=== PATIENT | female | born 1990 | race Two or more races ===

== ENCOUNTER 2021-05-12 08:06 | Emergency (ER) | payer MEDICAID, OTHER ==
[~2021-05-12] VITALS: Ht 162.6 cm; Wt 79.4 kg
[2021-05-12] MEDS ORDERED: ASPirin 81 mg TAB PO ONE (08:30)
[2021-05-12] MEDS ORDERED: SODIUM CHLORIDE 0.9% 1,000 ML IV ONE ×2 (08:30→10:30)
[2021-05-12 08:59] LABS: Basophils # (auto) 0 10 ^3/uL (0-0.2); Basophils % (auto) 0.5 % (0.0-2.0); Eosinophils # (auto) 0.3 10 ^3/uL (0-0.8); Eosinophils % (auto) 3.3 % (0.0-7.0); Hematocrit 37.3 % (36.0-46.0); Hemoglobin 12.4 g/dL (12.2-16.2); Lymphocytes # (auto) 1.5 10 ^3/uL (0.4-5.4); Lymphocytes % (auto) 18.7 % (10.0-50.0); Mean Corpuscular Hemoglobin 27.1 pg (28.0-32.0); Mean Corpuscular Hgb Conc. 33.1 g/dL (32.0-36.0); Monocytes # (auto) 0.6 10 ^3/uL (0-1.3); Monocytes % (auto) 7.1 % (0.0-12.0); Neutrophils # (auto) 5.7 10 ^3/uL (1.6-8.6); Neutrophils % (auto) 70.4 % (37.0-80.0); Red Blood Cells 4.55 10^6/uL (4.0-5.20); Red Cell Distribution Width 14.5 % (11.8-14.3); White Blood Cell 8.1 10^3/uL (4.4-10.8)
[2021-05-12 09:18] LABS: Chloride 108 mmol/L (98-107); Potassium 4.3 mmol/L (3.5-5.1); Sodium 138 mmol/L (136-145)
[2021-05-12 09:28] LABS: Alanine Aminotransferase 16 U/L (13-56); Albumin 3.8 g/dL (3.4-5.0); Alkaline Phosphatase 46 U/L (45-117); Anion Gap 4 (5-15); Aspartate Aminotransferase 10 U/L (15-37); BUN/Creatinine Ratio 17.1; Beta HCG, Quantitative < 1 mlU/mL (1-3); Bilirubin, Total 0.2 mg/dL (0.2-1.0); Blood Urea Nitrogen 13 mg/dL (7-18); Calcium 8.7 mg/dL (8.5-10.1); Carbon Dioxide 26 mmol/L (21-32); GFR African American 113 mL/min; GFR Non-African American 94 mL/min; Glucose 90 mg/dL (74-106); Total Protein 7.7 g/dL (6.4-8.2)
[2021-05-12 09:57] LABS: Urine Bacteria FEW /hpf (None Seen); Urine Blood TRACE /uL (Negative); Urine Mucus FEW (None Seen); Urine Specific Gravity 1.027 (1.001-1.035); Urine WBC 1 /hpf (0 - 5)
[2021-05-12] MEDS ORDERED: MORPHINE SULFATE 4 MG/ML SYR/VIAL IV ONE (10:30)
[2021-05-12] MEDS ORDERED: CIPROFLOXACIN HCL 500 MG TAB PO ONE ×2 (10:30→10:45)
[2021-05-12] MEDS ORDERED: ONDANSETRON HCL 4 MG/2 ML VIAL IV ONE (10:30)
[2021-05-12 12:39] VITALS: BP 105/68
== END 2021-05-12 12:41 | disposition home or self-care (01) ==
LOC: ER 08:06
DX: R07.89 Other chest pain (principal); N39.0 Urinary tract infection, site not specified; D25.9 Leiomyoma of uterus, unspecified; Z90.49 Acquired absence of other specified parts of digestive tract; Z88.8 Allergy status to other drugs, medicaments and biological substances
CPT/HCPCS: 36415; 71046; 76830; 76856; 80053; 81001; 83735; 84443; 84484; 84702; 85025; 85379; 93005; 96361; 96374; 96375; 99285; J2270; J2405; J7030

== ENCOUNTER 2021-07-26 07:53 | Emergency (ER) | payer MEDICAID ==
[~2021-07-26] VITALS: Ht 162.6 cm; Wt 90.7 kg
[2021-07-26 07:57] VITALS: BP 144/91
== END 2021-07-26 09:26 | disposition left against medical advice (07) ==
LOC: ER 07:53
DX: R10.30 Lower abdominal pain, unspecified (principal); R11.2 Nausea with vomiting, unspecified; R19.7 Diarrhea, unspecified; Z53.21 Procedure and treatment not carried out due to patient leaving prior to being seen by health care provider

== ENCOUNTER 2021-08-13 15:32 | Emergency (ER) | payer MEDICAID ==
[~2021-08-13] VITALS: Ht 162.6 cm; Wt 90.7 kg
[2021-08-13] MEDS ORDERED: ASPirin 81 mg TAB PO ONE (16:15)
[2021-08-13] MEDS ORDERED: SODIUM CHLORIDE 0.9% 1,000 ML IVB ONE (16:15)
[2021-08-13 16:44] LABS: Basophils # (auto) 0.1 10 ^3/uL (0-0.2); Basophils % (auto) 0.8 % (0.0-2.0); Eosinophils # (auto) 0.2 10 ^3/uL (0-0.8); Eosinophils % (auto) 3.2 % (0.0-7.0); Hemoglobin 12.3 g/dL (12.2-16.2); Lymphocytes # (auto) 1.7 10 ^3/uL (0.4-5.4); Lymphocytes % (auto) 22.2 % (10.0-50.0); Mean Corpuscular Hemoglobin 27.2 pg (28.0-32.0); Mean Corpuscular Hgb Conc. 33.2 g/dL (32.0-36.0); Mean Corpuscular Volume 81.9 fL (80.0-100.0); Monocytes # (auto) 0.9 10 ^3/uL (0-1.3); Monocytes % (auto) 11.5 % (0.0-12.0); Neutrophils # (auto) 4.6 10 ^3/uL (1.6-8.6); Neutrophils % (auto) 62.3 % (37.0-80.0); Red Blood Cells 4.52 10^6/uL (4.0-5.20); Red Cell Distribution Width 14.3 % (11.8-14.3); White Blood Cell 7.5 10^3/uL (4.4-10.8)
[2021-08-13 16:59] LABS: Albumin 3.8 g/dL (3.4-5.0); Calcium 8.4 mg/dL (8.5-10.1); Magnesium 3.2 mg/dL (1.6-2.6); Potassium 3.9 mmol/L (3.5-5.1)
[2021-08-13] MEDS ORDERED: ONDANSETRON HCL 4 MG/2 ML VIAL IV ONE (19:00)
[2021-08-13] MEDS ORDERED: HYDROmorphone HCL 2 MG/ML VL IV ONE (19:00)
[2021-08-13 20:23] VITALS: BP 125/69
[2021-08-13 20:53] LABS: BUN/Creatinine Ratio 9.3
[2021-08-13 20:55] LABS: Bilirubin, Total 0.1 mg/dL (0.2-1.0); Total Protein 7.9 g/dL (6.4-8.2)
== END 2021-08-13 21:29 | disposition home or self-care (01) ==
LOC: ER 15:32
DX: D25.9 Leiomyoma of uterus, unspecified (principal); R00.2 Palpitations; Z90.49 Acquired absence of other specified parts of digestive tract; Z88.8 Allergy status to other drugs, medicaments and biological substances; Z20.822 Contact with and (suspected) exposure to COVID-19
CPT/HCPCS: 36415; 71046; 76856; 80053; 83735; 84484; 84702; 85025; 87426; 93005; 96361; 96374; 96375; 99285; J1170; J2405; J7030

== ENCOUNTER 2021-10-30 15:45 | Emergency (ER) | payer MEDICAID ==
[~2021-10-30] VITALS: Ht 162.6 cm; Wt 95.3 kg
[2021-10-30] MEDS ORDERED: ONDANSETRON HCL 4 MG/2 ML VIAL IV ONE (16:15)
[2021-10-30] MEDS ORDERED: SODIUM CHLORIDE 0.9% 1,000 ML IV ONE ×2 (16:15→16:30)
[2021-10-30] MEDS ORDERED: MORPHINE SULFATE 4 MG/ML SYR/VIAL IV ONE (16:15)
[2021-10-30] MEDS ORDERED: SODIUM CHLORIDE 0.9% 500 ML IVB ONE ×2 (16:15→16:30)
[2021-10-30] MEDS ORDERED: MORPHINE SULFATE INJECTION 2 MG/ML SYRG IV ONE (16:30)
[2021-10-30 18:04] LABS: Albumin 3.8 g/dL (3.4-5.0); Basophils # (auto) 0.1 10 ^3/uL (0-0.2); Basophils % (auto) 0.7 % (0.0-2.0); Calcium 8.5 mg/dL (8.5-10.1); Eosinophils # (auto) 0.3 10 ^3/uL (0-0.8); Eosinophils % (auto) 2.9 % (0.0-7.0); Hematocrit 36.8 % (36.0-46.0); Hemoglobin 12.3 g/dL (12.2-16.2); Lymphocytes # (auto) 2.1 10 ^3/uL (0.4-5.4); Lymphocytes % (auto) 23.6 % (10.0-50.0); Magnesium 2.4 mg/dL (1.6-2.6); Mean Corpuscular Hemoglobin 27.3 pg (28.0-32.0); Mean Corpuscular Hgb Conc. 33.5 g/dL (32.0-36.0); Mean Corpuscular Volume 81.4 fL (80.0-100.0); Monocytes # (auto) 0.6 10 ^3/uL (0-1.3); Monocytes % (auto) 6.7 % (0.0-12.0); Neutrophils % (auto) 66.1 % (37.0-80.0); Nucleated Red Blood Cells % 0.1 %; Red Blood Cells 4.52 10^6/uL (4.0-5.20); Red Cell Distribution Width 14.4 % (11.8-14.3)
[2021-10-30 18:06] LABS: BUN/Creatinine Ratio 12.7
[2021-10-30 18:09] LABS: Bilirubin, Total 0.1 mg/dL (0.2-1.0); Total Protein 8.2 g/dL (6.4-8.2)
[2021-10-30 18:36] VITALS: BP 137/77
[2021-10-30] MEDS ORDERED: IOHEXOL 300 MG/ML 100ML BOTTLE IJ ONE (20:02)
== END 2021-10-30 22:12 | disposition left against medical advice (07) ==
LOC: ER 15:45
DX: R10.32 Left lower quadrant pain (principal); R11.2 Nausea with vomiting, unspecified; Z90.49 Acquired absence of other specified parts of digestive tract; Z88.6 Allergy status to analgesic agent
CPT/HCPCS: 36415; 74177; 76830; 76856; 80053; 83690; 83735; 84702; 85025; 96361; 96374; 96375; 99285; J2270; J2405; J7040; Q9967

== ENCOUNTER 2021-12-07 08:36 | Emergency (ER) | payer MEDICAID ==
[~2021-12-07] VITALS: Ht 162.6 cm; Wt 95.3 kg
[2021-12-07 08:37] VITALS: BP 139/85
== END 2021-12-07 11:30 | disposition left against medical advice (07) ==
LOC: ER 08:36
DX: N63.0 Unspecified lump in unspecified breast (principal); R50.9 Fever, unspecified; Z53.21 Procedure and treatment not carried out due to patient leaving prior to being seen by health care provider

== ENCOUNTER 2022-01-19 14:28 | Emergency (ER) | payer MEDICAID, OTHER ==
[~2022-01-19] VITALS: Ht 165.1 cm; Wt 95.3 kg
[2022-01-19 15:18] LABS: Basophils # (auto) 0 10 ^3/uL (0-0.2); Basophils % (auto) 0.5 % (0.0-2.0); Eosinophils # (auto) 0.2 10 ^3/uL (0-0.8); Eosinophils % (auto) 1.7 % (0.0-7.0); Hematocrit 39.7 % (36.0-46.0); Hemoglobin 13.4 g/dL (12.2-16.2); Lymphocytes # (auto) 1.8 10 ^3/uL (0.4-5.4); Lymphocytes % (auto) 19.8 % (10.0-50.0); Mean Corpuscular Hemoglobin 27.2 pg (28.0-32.0); Mean Corpuscular Hgb Conc. 33.7 g/dL (32.0-36.0); Mean Corpuscular Volume 80.9 fL (80.0-100.0); Monocytes # (auto) 0.6 10 ^3/uL (0-1.3); Monocytes % (auto) 6.1 % (0.0-12.0); Neutrophils # (auto) 6.6 10 ^3/uL (1.6-8.6); Neutrophils % (auto) 71.9 % (37.0-80.0); Red Blood Cells 4.91 10^6/uL (4.0-5.20); Red Cell Distribution Width 15.1 % (11.8-14.3); White Blood Cell 9.2 10^3/uL (4.4-10.8)
[2022-01-19 15:29] LABS: Albumin 4.1 g/dL (3.4-5.0); BUN/Creatinine Ratio 14.1; Potassium 3.8 mmol/L (3.5-5.1)
[2022-01-19 15:32] LABS: Bilirubin, Total 0.4 mg/dL (0.2-1.0); Total Protein 8.4 g/dL (6.4-8.2)
[2022-01-19] MEDS ORDERED: ACETAMINOPHEN 325 MG TAB PO ONE (16:15)
[2022-01-19] MEDS ORDERED: ONDANSETRON ODT 4 MG TAB PO ONE (16:15)
[2022-01-19] MEDS ORDERED: MORPHINE SULFATE INJ 2 MG/ml SYRG IM ONE (16:30)
[2022-01-19] MEDS ORDERED: SODIUM CHLORIDE 0.9% 1,000 ML IV ONE (17:00)
[2022-01-19] MEDS ORDERED: ONDANSETRON HCL 4 MG/2 ML VIAL IM ONE (17:00)
[2022-01-19] MEDS ORDERED: SULF800T7 PO (17:21)
[2022-01-19] MEDS ORDERED: MORPHINE SULFATE INJ 2 MG/ml SYRG IV ONE (18:30)
[2022-01-19 19:09] VITALS: BP 127/95
== END 2022-01-19 20:10 | disposition home or self-care (01) ==
LOC: ER 14:28
DX: N39.0 Urinary tract infection, site not specified (principal)
CPT/HCPCS: 36415; 76856; 80053; 84702; 85025; 96361; 96372; 96374; 99285; J2270; J2405; J7030; Q0162

== ENCOUNTER 2022-02-26 09:33 | Emergency (ER) | payer OTHER ==
[~2022-02-26 09:33] MED LIST: SULF800T7 PO
[2022-02-26 09:53] VITALS: BP 111/69
[2022-02-26 10:42] LABS: Basophils # (auto) 0.1 10 ^3/uL (0-0.2); Eosinophils # (auto) 0.2 10 ^3/uL (0-0.8); Hemoglobin 11.9 g/dL (12.2-16.2); Monocytes # (auto) 0.4 10 ^3/uL (0-1.3)
[2022-02-26 10:43] LABS: Eosinophils % (auto) 3.1 % (0.0-7.0); Hematocrit 37.2 % (36.0-46.0); Lymphocytes # (auto) 1.4 10 ^3/uL (0.4-5.4); Lymphocytes % (auto) 24.4 % (10.0-50.0); Mean Corpuscular Hemoglobin 25.9 pg (28.0-32.0); Mean Corpuscular Volume 80.9 fL (80.0-100.0); Monocytes % (auto) 6.7 % (0.0-12.0); Neutrophils # (auto) 3.9 10 ^3/uL (1.6-8.6); Neutrophils % (auto) 64.8 % (37.0-80.0); Nucleated Red Blood Cells % 0.1 %; Red Cell Distribution Width 14.7 % (11.8-14.3); White Blood Cell 5.9 10^3/uL (4.4-10.8)
[2022-02-26 11:00] LABS: Albumin 3.5 g/dL (3.4-5.0); Calcium 8.6 mg/dL (8.5-10.1); Potassium 3.9 mmol/L (3.5-5.1)
[2022-02-26 11:03] LABS: BUN/Creatinine Ratio 12.7; Bilirubin, Total 0.2 mg/dL (0.2-1.0); Total Protein 7.8 g/dL (6.4-8.2)
== END 2022-02-26 14:30 | disposition left against medical advice (07) ==
LOC: ER 09:33
DX: N83.201 Unspecified ovarian cyst, right side (principal)
CPT/HCPCS: 36415; 80053; 84702; 85025

== ENCOUNTER → 2022-06-10 | Emergency (ER) | payer MEDICAID, OTHER ==
[~2022-06-10] VITALS: Ht 162.6 cm; Wt 94.1 kg
[~2022-06-10] MED LIST changes: +HYDR-4902 PO; +HYDROcodone-ACET 10/325MG TAB PO ONE; +MORPHINE SULFATE INJ 2 MG/ml SYRG IM ONE; +MORPHINE SULFATE INJ 2 MG/ml SYRG IV ONE; +ONDANSETRON HCL 4 MG/2 ML VIAL IV ONE; +SODIUM CHLORIDE 0.9% 1,000 ML IV ONE; +cefTRIAXone 1GM/50ML D5W 50 ML IV ONE
[2022-06-10 13:40] LABS: Hemoglobin 11.4 g/dL (12.2-16.2); Lymphocytes # (auto) 2.1 10 ^3/uL (0.4-5.4); Red Cell Distribution Width 15.2 % (11.8-14.3)
[2022-06-10 13:42] LABS: Basophils # (auto) 0 10 ^3/uL (0-0.2); Basophils % (auto) 0.4 % (0.0-2.0); Eosinophils # (auto) 0.3 10 ^3/uL (0-0.8); Eosinophils % (auto) 3.5 % (0.0-7.0); Hematocrit 34.9 % (36.0-46.0); Lymphocytes % (auto) 27.5 % (10.0-50.0); Mean Corpuscular Hemoglobin 26.8 pg (28.0-32.0); Mean Corpuscular Hgb Conc. 32.7 g/dL (32.0-36.0); Mean Corpuscular Volume 82.1 fL (80.0-100.0); Monocytes # (auto) 0.7 10 ^3/uL (0-1.3); Monocytes % (auto) 8.7 % (0.0-12.0); Neutrophils # (auto) 4.6 10 ^3/uL (1.6-8.6); Neutrophils % (auto) 59.9 % (37.0-80.0); Nucleated Red Blood Cells % 0.1 %; Red Blood Cells 4.25 10^6/uL (4.0-5.20); White Blood Cell 7.6 10^3/uL (4.4-10.8)
[2022-06-10 13:55] LABS: Albumin 3.7 g/dL (3.4-5.0); Calcium 8.7 mg/dL (8.5-10.1); Potassium 4.3 mmol/L (3.5-5.1)
[2022-06-10 13:58] LABS: BUN/Creatinine Ratio 13.9; Bilirubin, Total 0.2 mg/dL (0.2-1.0); Total Protein 7.2 g/dL (6.4-8.2)
[2022-06-10 18:50] VITALS: BP 111/53
== END | disposition home or self-care (01) ==
LOC: ER 08:58
DX: N83.209 Unspecified ovarian cyst, unspecified side (principal); E03.9 Hypothyroidism, unspecified; Z90.49 Acquired absence of other specified parts of digestive tract; Z79.899 Other long term (current) drug therapy; Z88.8 Allergy status to other drugs, medicaments and biological substances
CPT/HCPCS: 36415; 74176; 80053; 85025; 96365; 96375; 99284; J0696; J2270; J2405; J7030

== ENCOUNTER 2022-06-14 09:06 | Inpatient (IN) | payer MEDICAID ==
[~2022-06-14] VITALS: Ht 162.6 cm; Wt 105.3 kg
[~2022-06-14 09:06] MED LIST changes: -HYDROcodone-ACET 10/325MG TAB PO ONE; -MORPHINE SULFATE INJ 2 MG/ml SYRG IM ONE; -MORPHINE SULFATE INJ 2 MG/ml SYRG IV ONE; -ONDANSETRON HCL 4 MG/2 ML VIAL IV ONE; -SODIUM CHLORIDE 0.9% 1,000 ML IV ONE; -cefTRIAXone 1GM/50ML D5W 50 ML IV ONE
[2022-06-14] MEDS ORDERED: SODIUM CHLORIDE 0.9% 1,000 ML IV ONE (09:30)
[2022-06-14 13:31] LABS: Hematocrit 36.5 % (36.0-46.0); Hemoglobin 11.9 g/dL (12.2-16.2); Mean Corpuscular Hemoglobin 26.5 pg (28.0-32.0); Mean Corpuscular Hgb Conc. 32.5 g/dL (32.0-36.0); Mean Corpuscular Volume 81.5 fL (80.0-100.0); Red Blood Cells 4.48 10^6/uL (4.0-5.20); White Blood Cell 8.1 10^3/uL (4.4-10.8)
[2022-06-14 13:44] LABS: Band Neutrophils % (manual) 0; Blast Cells 0; Eosinophils % (manual) 0 (0-7); Metamyelocytes % 0; Myelocytes % 0; Promyelocytes % 0; Reactive Lymphocytes 0
[2022-06-14] MEDS ORDERED: ONDANSETRON HCL 4 MG/2 ML VIAL IV ONE (13:45)
[2022-06-14] MEDS ORDERED: MORPHINE SULFATE INJ 2 MG/ml SYRG IV ONE (13:45)
[2022-06-14 13:52] LABS: Albumin 3.9 g/dL (3.4-5.0); Potassium 3.8 mmol/L (3.5-5.1)
[2022-06-14 13:55] LABS: Bilirubin, Total 0.2 mg/dL (0.2-1.0); Total Protein 8.1 g/dL (6.4-8.2)
[2022-06-14] MEDS ORDERED: ACETAMINOPHEN 325 MG TAB PO PRN (14:00)
[2022-06-14] MEDS ORDERED: cefTRIAXone 1GM/50ML D5W 50 ML IV ONE (14:15)
[2022-06-14] MEDS ORDERED: metroNIDAZOLE 500MG/100ML 100 ML IV ONE (14:15)
[2022-06-14] MEDS: SODIUM CHLORIDE 0.9% 1,000 ML IV SCH (14:27)
[2022-06-14 14:51] LABS: Cholesterol 188 mg/dL (< 200); HDL Cholesterol 47 mg/dL (40-59); LDL Cholesterol 128 mg/dL (< 100); Triglycerides 185 mg/dL (< 150)
[2022-06-14 15:33] LABS: Basophils % (manual) 3 (0.0-2.0); Lymphocytes % (manual) 23 (10.0-50.0); Monocytes % (manual) 8 (0-12)
[2022-06-14 16:34] LABS: Amphetamine Screen, Urine NEGATIVE (NEGATIVE); Barbiturate Scree,Urine NEGATIVE (NEGATIVE); Benzodiazephine Screen, Urine NEGATIVE (NEGATIVE); Cannabinoid Screen, Urine NEGATIVE (NEGATIVE); Cocaine Screen, Urine NEGATIVE (NEGATIVE); Opiate Scree,Urine POSITIVE (NEGATIVE); Phencyclidine Screen, Urine NEGATIVE (NEGATIVE); Urine Bacteria MOD /hpf (None Seen); Urine Blood Negative /uL (Negative); Urine Mucus FEW (None Seen); Urine Specific Gravity 1.032 (1.001-1.035); Urine WBC 16 /hpf (0 - 5)
[2022-06-14] MEDS: ONDANSETRON HCL 4 MG/2 ML VIAL IV PRN (18:09)
[2022-06-14] MEDS: MORPHINE SULFATE INJ 2 MG/ml SYRG IV PRN ×2 (18:09→23:15)
[2022-06-14 23:00] VITALS: BP 121/41
[2022-06-14] MEDS: metroNIDAZOLE 500MG/100ML 100 ML IV SCH (23:14)
[2022-06-15 05:00] VITALS: BP 94/50
[2022-06-15] MEDS: metroNIDAZOLE 500MG/100ML 100 ML IV SCH ×3 (05:57→22:16)
[2022-06-15] MEDS: SODIUM CHLORIDE 0.9% 1,000 ML IV SCH ×3 (05:58→14:15)
[2022-06-15 09:00] VITALS: BP 128/67
[2022-06-15] MEDS: MORPHINE SULFATE INJ 2 MG/ml SYRG IV PRN ×4 (09:04→22:17)
[2022-06-15 09:16] LABS: Basophils # (auto) 0.1 10 ^3/uL (0-0.2); Basophils % (auto) 1.1 % (0.0-2.0); Eosinophils # (auto) 0.2 10 ^3/uL (0-0.8); Eosinophils % (auto) 3.3 % (0.0-7.0); Hematocrit 32.8 % (36.0-46.0); Hemoglobin 10.8 g/dL (12.2-16.2); Lymphocytes # (auto) 1.6 10 ^3/uL (0.4-5.4); Lymphocytes % (auto) 25.6 % (10.0-50.0); Mean Corpuscular Hemoglobin 26.8 pg (28.0-32.0); Mean Corpuscular Volume 81.1 fL (80.0-100.0); Monocytes # (auto) 0.6 10 ^3/uL (0-1.3); Monocytes % (auto) 9.7 % (0.0-12.0); Neutrophils # (auto) 3.8 10 ^3/uL (1.6-8.6); Neutrophils % (auto) 60.3 % (37.0-80.0); Red Blood Cells 4.04 10^6/uL (4.0-5.20); Red Cell Distribution Width 14.4 % (11.8-14.3); White Blood Cell 6.4 10^3/uL (4.4-10.8)
[2022-06-15 09:27] LABS: BUN/Creatinine Ratio 18.3; Potassium 4.1 mmol/L (3.5-5.1)
[2022-06-15 13:00] VITALS: BP 112/75
[2022-06-15] MEDS ORDERED: OMNIPAQUE ORAL SOLN 500ml 12mg/ml PO ONE (14:53)
[2022-06-15] MEDS ORDERED: IOHEXOL 300 MG/ML 100ML BOTTLE IJ ONE (16:07)
[2022-06-15 16:45] VITALS: BP 107/66
[2022-06-15] MEDS ORDERED: cefTRIAXone 1GM/50ML D5W 50 ML IV ONE (17:00)
[2022-06-15] MEDS: cefTRIAXone 1GM/50ML D5W 50 ML IV SCH (18:17)
[2022-06-15] MEDS: ONDANSETRON HCL 4 MG/2 ML VIAL IV PRN (18:18)
[2022-06-15 20:00] VITALS: BP 116/73
[2022-06-15 22:00] VITALS: BP 116/73
[2022-06-16] VITALS (7 sets, daily range): BP systolic 90–134; BP diastolic 55–92
[2022-06-16] MEDS: SODIUM CHLORIDE 0.9% 1,000 ML IV SCH ×4 (00:18→21:00)
[2022-06-16] MEDS: metroNIDAZOLE 500MG/100ML 100 ML IV SCH ×3 (06:05→21:36)
[2022-06-16] MEDS: MORPHINE SULFATE INJ 2 MG/ml SYRG IV PRN ×5 (06:57→23:23)
[2022-06-16] MEDS: ONDANSETRON HCL 4 MG/2 ML VIAL IV PRN (15:58)
[2022-06-16] MEDS: cefTRIAXone 1GM/50ML D5W 50 ML IV SCH (17:07)
[2022-06-16] MEDS: HYDROcodone-ACET 5/325MG TAB PO PRN (21:36)
[2022-06-17] VITALS (7 sets, daily range): BP systolic 102–137; BP diastolic 46–93
[2022-06-17] MEDS ORDERED: HYDROmorphone HCL 2 MG/ML VL/or syr IV PRN (01:45)
[2022-06-17] MEDS: ONDANSETRON HCL 4 MG/2 ML VIAL IV PRN ×5 (01:54→23:09)
[2022-06-17] MEDS: SODIUM CHLORIDE 0.9% 1,000 ML IV SCH ×3 (05:57→22:15)
[2022-06-17] MEDS: HYDROmorphone HCL 2 MG/ML VL/or syr IV PRN ×5 (05:58→23:12)
[2022-06-17] MEDS: metroNIDAZOLE 500MG/100ML 100 ML IV SCH ×3 (05:59→22:03)
[2022-06-17] MEDS: PANTOPRAZOLE 40 MG/10 ML VIAL INJ IV SCH (10:06)
[2022-06-17] MEDS: HYDROcodone-ACET 5/325MG TAB PO PRN (11:42)
[2022-06-17] MEDS: cefTRIAXone 1GM/50ML D5W 50 ML IV SCH (17:47)
[2022-06-18] MEDS: SODIUM CHLORIDE 0.9% 1,000 ML IV SCH ×2 (02:08→14:15)
[2022-06-18] MEDS: ONDANSETRON HCL 4 MG/2 ML VIAL IV PRN ×3 (03:51→11:51)
[2022-06-18] MEDS: HYDROmorphone HCL 2 MG/ML VL/or syr IV PRN ×3 (04:02→11:51)
[2022-06-18] MEDS: metroNIDAZOLE 500MG/100ML 100 ML IV SCH ×2 (07:44→13:20)
[2022-06-18] MEDS: PANTOPRAZOLE 40 MG/10 ML VIAL INJ IV SCH (09:32)
[2022-06-18] MEDS: HYDROcodone-ACET 5/325MG TAB PO PRN ×2 (09:33→13:21)
[2022-06-18] MEDS ORDERED: AMOX500T86 PO (12:05)
[2022-06-18] MEDS ORDERED: ONDA-144 PO (12:05)
[2022-06-18 12:38] VITALS: BP 99/53
[2022-06-18 13:00] VITALS: BP 99/53
== END 2022-06-18 15:30 | disposition home or self-care (01) | DRG 251 ==
LOC: ER 09:06 → OVERFLOW 13:50 → WEST WING 22:55
PROVIDERS: ADMIT Registered Nurse; ATTEND Internal Medicine
DX: R10.30 Lower abdominal pain, unspecified (principal); E66.01 Morbid (severe) obesity due to excess calories; R11.2 Nausea with vomiting, unspecified; Z20.822 Contact with and (suspected) exposure to COVID-19; Z88.8 Allergy status to other drugs, medicaments and biological substances; Z90.49 Acquired absence of other specified parts of digestive tract; Z68.39 Body mass index [BMI] 39.0-39.9, adult
CPT/HCPCS: 36415; 74178; 80048; 80053; 80061; 80307; 81001; 81025; 83036; 84443; 85007; 85025; 85027; 87040; 87086; 87426; 96361; 96365; 96366; 96367; 96375; 96376; C9113; G0378; J0696; J2405; J3490

== ENCOUNTER 2023-12-21 12:04 | Inpatient (IN) | payer MEDICAID ==
[~2023-12-21] VITALS: Ht 162.6 cm; Wt 95.9 kg
[~2023-12-21 12:04] MED LIST changes: +AMOX500T86 PO; +CEFD300C2 PO; +CYCL-839 PO; +GABA-1250 PO; -HYDR-4902 PO; +ONDA-144 PO; +PRED20TA2 PO; -SULF800T7 PO
[2023-12-21] MEDS: MORPHINE SULFATE INJ 2 MG/ml SYRG IM ONE (15:23)
[2023-12-21] MEDS: SODIUM CHLORIDE 0.9% 1,000 ML IV ONE ×2 (15:23)
[2023-12-21] MEDS: HYDROcodone-ACET 10/325MG TAB PO ONE (15:23)
[2023-12-21 15:37] LABS: Basophils # (auto) 0 10 ^3/uL (0-0.2); Basophils % (auto) 0.4 % (0.0-2.0); Eosinophils # (auto) 0.2 10 ^3/uL (0-0.8); Eosinophils % (auto) 3.1 % (0.0-7.0); Hematocrit 35.5 % (36.0-46.0); Hemoglobin 11.5 g/dL (12.2-16.2); Lymphocytes # (auto) 1.9 10 ^3/uL (0.4-5.4); Lymphocytes % (auto) 24.3 % (10.0-50.0); Mean Corpuscular Hemoglobin 26.7 pg (28.0-32.0); Mean Corpuscular Hgb Conc. 32.5 g/dL (32.0-36.0); Mean Corpuscular Volume 81.9 fL (80.0-100.0); Monocytes # (auto) 0.6 10 ^3/uL (0-1.3); Monocytes % (auto) 7.1 % (0.0-12.0); Neutrophils # (auto) 5.1 10 ^3/uL (1.6-8.6); Neutrophils % (auto) 65.1 % (37.0-80.0); Nucleated Red Blood Cells % 0.1 %; Red Blood Cells 4.33 10^6/uL (4.0-5.20); Red Cell Distribution Width 16.1 % (11.8-14.3); White Blood Cell 7.9 10^3/uL (4.4-10.8)
[2023-12-21 15:50] LABS: Chloride 107 mmol/L (98-107); Potassium 3.4 mmol/L (3.5-5.1); Sodium 140 mmol/L (136-145)
[2023-12-21 15:51] LABS: Anion Gap 7 (5-15); Carbon Dioxide 26 mmol/L (20-30)
[2023-12-21 15:52] LABS: Calcium 9.4 mg/dL (8.5-10.1)
[2023-12-21 15:56] LABS: BUN/Creatinine Ratio 11.5 (10.0-20.0); Blood Urea Nitrogen 9 mg/dL (9-23); Glucose 90 mg/dL (74-106)
[2023-12-21] MEDS: ONDANSETRON ODT 4 MG TAB PO ONE (16:22)
[2023-12-21 17:22] VITALS: PULSE 84; RESP 16; O2SAT 99
[2023-12-21] MEDS ORDERED: DOCUSATE SOD 100 MG CAP PO PRN (17:45)
[2023-12-21] MEDS ORDERED: HYDROmorphone HCL 2 MG/ML VL/or syr IV PRN (17:45)
[2023-12-21] MEDS ORDERED: ONDANSETRON HCL 4 MG/2 ML VIAL IV PRN (17:45)
[2023-12-21] MEDS: MORPHINE SULFATE 4 MG/ML SYR/VIAL IV ONE (18:01)
[2023-12-21] MEDS: POTASSIUM EFFERVESENT TAB 25 MEQ PO ONE (18:22)
[2023-12-21] MEDS: SODIUM CHLORIDE 0.9% 1,000 ML IV SCH (18:22)
[2023-12-21] MEDS: DexAMETHasone SOD PHOS 10MG/1ML VIAL INJ IV ONE (18:22)
[2023-12-21 20:00] VITALS: PULSE 91; RESP 20; TEMP 97.8; O2SAT 97
[2023-12-21] MEDS: diphenhdrAMINE HCL 50 MG/1 ML VL IV PRN (20:25)
[2023-12-21] MEDS: HYDROmorphone HCL 2 MG/ML VL/or syr IV ONE (20:26)
[2023-12-21 22:00] VITALS: BP 108/76; PULSE 93; RESP 16; O2SAT 97
[2023-12-21] MEDS ORDERED: CYCLOBENZAPRINE HCL 10 MG TAB PO SCH (22:00)
[2023-12-21] MEDS ORDERED: GABAPENTIN 300 MG CAP PO SCH (22:00)
[2023-12-22] MEDS ORDERED: DexAMETHasone SOD PHOS 10MG/1ML VIAL INJ IV SCH (10:00)
== END 2023-12-21 22:21 | disposition left against medical advice (07) | DRG 347 ==
LOC: ER 12:04 → OVERFLOW 17:35
PROVIDERS: ADMIT Nurse Practitioner Family; ATTEND Nurse Practitioner Family
DX: M51.16 Intervertebral disc disorders with radiculopathy, lumbar region (principal); D64.9 Anemia, unspecified; E03.9 Hypothyroidism, unspecified; I10 Essential (primary) hypertension; Z53.29 Procedure and treatment not carried out because of patient's decision for other reasons; K80.20 Calculus of gallbladder without cholecystitis without obstruction; E87.6 Hypokalemia; Z79.899 Other long term (current) drug therapy; Z88.8 Allergy status to other drugs, medicaments and biological substances; Z90.49 Acquired absence of other specified parts of digestive tract
CPT/HCPCS: 36415; 80048; 85025; G0378; J1100; Q0162

== ENCOUNTER 2024-04-03 13:19 | Emergency (ER) | payer MEDICAID ==
[~2024-04-03] VITALS: Ht 162.6 cm; Wt 104.3 kg
[2024-04-03 13:36] VITALS: BP 132/91; PULSE 105; RESP 16; O2SAT 99
[2024-04-03 13:57] LABS: Basophils # (auto) 0 10 ^3/uL (0-0.2); Basophils % (auto) 0.4 % (0.0-2.0); Eosinophils # (auto) 0.3 10 ^3/uL (0-0.8); Eosinophils % (auto) 2.6 % (0.0-7.0); Hematocrit 31.5 % (36.0-46.0); Hemoglobin 10.5 g/dL (12.2-16.2); Lymphocytes # (auto) 2.1 10 ^3/uL (0.4-5.4); Lymphocytes % (auto) 21.4 % (10.0-50.0); Mean Corpuscular Hemoglobin 25.5 pg (28.0-32.0); Mean Corpuscular Hgb Conc. 33.3 g/dL (32.0-36.0); Mean Corpuscular Volume 76.6 fL (80.0-100.0); Monocytes # (auto) 0.7 10 ^3/uL (0-1.3); Monocytes % (auto) 7.4 % (0.0-12.0); Neutrophils # (auto) 6.7 10 ^3/uL (1.6-8.6); Neutrophils % (auto) 68.2 % (37.0-80.0); Platelet Count (auto) 325 10^3/uL (140-450); Red Blood Cells 4.11 10^6/uL (4.0-5.20); Red Cell Distribution Width 15.3 % (11.8-14.3); White Blood Cell 9.8 10^3/uL (4.4-10.8)
[2024-04-03 14:19] LABS: Alanine Aminotransferase 12 U/L (7-40); Albumin 4.3 g/dL (3.2-4.8); Alkaline Phosphatase 49 U/L (46-116); Anion Gap 6 (5-15); Aspartate Aminotransferase 10 U/L (13-40); BUN/Creatinine Ratio 11.4 (10.0-20.0); Bilirubin, Total 0.3 mg/dL (0.2-1.0); Blood Urea Nitrogen 9 mg/dL (9-23); Calcium 9.1 mg/dL (8.7-10.4); Carbon Dioxide 26 mmol/L (20-30); Chloride 108 mmol/L (98-107); Glucose 82 mg/dL (74-106); Lipase 35 U/L (12-53); Potassium 3.9 mmol/L (3.5-5.1); Sodium 140 mmol/L (136-145); Total Protein 7.3 g/dL (5.7-8.2)
== END 2024-04-03 20:35 | disposition left against medical advice (07) ==
LOC: ER 13:19
DX: O26.891 Other specified pregnancy related conditions, first trimester (principal); R10.2 Pelvic and perineal pain; R10.9 Unspecified abdominal pain; I10 Essential (primary) hypertension; Z3A.01 Less than 8 weeks gestation of pregnancy; Z53.29 Procedure and treatment not carried out because of patient's decision for other reasons; Z98.890 Other specified postprocedural states; Z88.8 Allergy status to other drugs, medicaments and biological substances; Z79.899 Other long term (current) drug therapy
CPT/HCPCS: 36415; 80053; 83605; 83690; 84484; 84702; 85025

== ENCOUNTER 2024-05-12 11:04 | Emergency (ER) | payer MEDICAID ==
[~2024-05-12] VITALS: Ht 162.6 cm; Wt 102.8 kg
[2024-05-12] MEDS: ONDANSETRON ODT 4 MG TAB PO ONE (12:04)
[2024-05-12 12:09] VITALS: TEMP 98.7
[2024-05-12] MEDS: ONDANSETRON HCL 4 MG/2 ML VIAL IM ONE (12:12)
[2024-05-12] MEDS: HYDROmorphone HCL 2 MG/ML VL/or syr IM ONE (12:13)
[2024-05-12] MEDS: MORPHINE SULFATE 4 MG/ML SYR/VIAL IV ONE ×2 (12:27→16:47)
[2024-05-12] MEDS: SODIUM CHLORIDE 0.9% 1,000 ML IV ONE (15:23)
[2024-05-12 15:28] VITALS: O2SAT 98
[2024-05-12] MEDS: PROCHLORPERAZINE EDISYLATE 5 MG/ML 2ML VIAL IV ONE (15:29)
[2024-05-12] MEDS: ONDANSETRON HCL 4 MG/2 ML VIAL IV ONE (15:34)
[2024-05-12] MEDS: methylPREDNISolone SOD SUCC 125 MG/2 ML VL IV ONE (16:15)
[2024-05-12 16:47] VITALS: BP 130/68; PULSE 80; RESP 15
[2024-05-12 17:12] LABS: Urine Bacteria None Seen /hpf (None Seen)
[2024-05-12 18:12] LABS: Urine Blood 2+ /uL (Negative); Urine Clarity Clear (Clear); Urine Color Light-Yellow (Yellow); Urine Mucus FEW (None Seen); Urine Protein, UAD Negative (Negative); Urine Specific Gravity 1.028 (1.001-1.035); Urine Urobilinogen Normal (Negative); Urine WBC 1 /hpf (0 - 5); Urine pH 5.5 (5.0-9.0)
== END 2024-05-12 18:38 | disposition home or self-care (01) ==
LOC: ER 11:04
DX: M54.50 Low back pain, unspecified (principal); G89.29 Other chronic pain; M47.816 Spondylosis without myelopathy or radiculopathy, lumbar region; I10 Essential (primary) hypertension; Z79.52 Long term (current) use of systemic steroids; Z79.899 Other long term (current) drug therapy; Z90.49 Acquired absence of other specified parts of digestive tract
CPT/HCPCS: 72131; 81001; 96361; 96372; 96374; 96375; 96376; 99285; J0780; J2270; J2405; J7030

== ENCOUNTER 2024-09-23 07:35 | Emergency (ER) | payer MEDICAID ==
[~2024-09-23] VITALS: Ht 165.1 cm; Wt 95.0 kg
[2024-09-23 07:35] VITALS: TEMP 99.1
[2024-09-23 07:48] VITALS: BP 133/91; PULSE 96; RESP 17; O2SAT 97
--- NOTE | 2024-09-23 09:40 | ED.PDOC ---
History of Present Illness HPI Comments 33 year old female presents to the ED with chief complaint of lab request. Patient reports that she is undergoing IVF through a clinic in [place] and she had taken a test yesterday and today, both of which coming back positive. Patient relays that she called her OBGYN Dr. Wade and was advised to come to the ED to have a Beta HCG performed and if it came back high, to stop her IVF medications. Patient states she has history of ectopic pregnancies and she has had some mild right pelvic pain, but thinks it may be due to implantation from IVF. Patient notes she had her embryo implanted on 09/17/24. Patient reports that she has an appointment with Dr. Wade on Monday. Patient denies any N/V/D, abdominal pain, fever, chills, or vaginal bleeding. Chief Complaint: Abnormal LAB's Time Seen by MD: 09:35 Primary Care Provider: PAIN MANAGEMENT Reviewed Notes: Nurses Notes, Medications, Allergies Allergies: Coded Allergies: Ketorolac Tromethamine (Verified Allergy, Mild, 05/12/21) Metoclopramide (Verified Allergy, Mild, 05/12/21) Prochlorperazine (Verified Allergy, Mild, 05/12/21) Home Meds Active Scripts Cefdinir (Cefdinir) 300 Mg Cap, 1 CAP PO BID for 10 Days, #20 CAP Prov:KELVIN BUTLER MD 08/19/23 Cyclobenzaprine Hcl (Cyclobenzaprine Hcl) 10 Mg Tab, 10 MG PO TID for 10 Days, #30 TAB Prov:KELVIN BUTLER MD 08/19/23 Prednisone (Prednisone) 20 Mg Tab, 20 MG PO BID for 7 Days, #14 MG Prov:KELVIN BUTLER MD 08/19/23 Gabapentin (Gabapentin) 300 Mg Cap, 1 CAP PO TID, #30 CAP 1 Refill Prov:KAIT CAMPOS 07/14/23 Ondansetron (Zofran) 4 Mg Tab, 1 TAB PO Q8HR, #30 TAB Prov:MARSHALL BROWNING MD 06/18/22 Amoxicillin & Pot Clavulanate (Augmentin) 500 Mg Tab, 1 TAB PO BID, #14 TAB Prov:MARSHALL BROWNING MD 06/18/22 Information Source: Patient Mode of Arrival: Ambulatory Severity: Moderate Timing: Days Duration: Since onset Prehospital treatment: None Past Medical History PAST MEDICAL HISTORY: HTN, Thyroid 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, [employer] History: Ovarian Cysts Family History Family History: Reviewed,noncontributory to illness Family History (Other): Neuropathy Social History Smoker: Non-Smoker Alcohol: Occasionally Drugs: Denies Drug Use Lives In: Home Constitutional: denies: chills, diaphoresis, fatigue, fever, malaise, sweats, weakness, others EENTM: denies: blurred vision, double vision, ear bleeding, ear discharge, ear drainage, ear pain, ear ringing, eye pain, eye redness, hearing loss, mouth pain, mouth swelling, nasal discharge, nose bleeding, nose congestion, nose pain, photophobia, tearing, throat pain, throat swelling, voice changes, others Respiratory: denies: cough, hemoptysis, orthopnea, SOB at rest, shortness of breath, SOB with excertion, stridor, wheezing, others Cardiovascular: denies: chest pain, dizzy spells, diaphoresis, Dyspnea on exertion, edema, irregular heart beat, left arm pain, lightheadedness, palpitations, PND, syncope, others Gastrointestinal: denies: abdomen distended, abdominal pain, blood streaked bowels, constipated, diarrhea, dysphagia, difficulty swallowing, hematemesis, melena, nausea, poor appetite, poor fluid intake, rectal bleeding, rectal pain, vomiting, others Genitourinary: denies: abnormal vagina bleeding, burning, dyspareunia, dysuria, flank pain, frequency, hematuria, incontinence, pain, , vagina discharge, urgency, others Neurological: denies: dizziness, fainting, headache, left sided numbness, left sided weakness, numbness, paresthesia, pre-existing deficit, right sided numbne ss, right sided weakness, seizure, speech problems, tingling, tremors, weakness, others Musculoskeletal: denies: back pain, gout, joint pain, joint swelling, muscle pain, muscle stiffness, neck pain, others Integumetry: denies: bruises, change in color, change in hair/nails, dryness, laceration, lesions, lumps, rash, wounds, others Allergic/Immunocompromised: denies: Difficulty Healing, Frequent Infections, Hives, Itching, others Hematologic/Lymphatic: denies: anemia, blood clots, easy bleeding, easy bruising, swollen glands, others Endocrine: denies: excessive hunger, excessive sweating, excessive thirst, excessive urination, flushing, intolerance to cold, intolerance to heat, unexplained weight gain, unexplained weight loss, others Psychiatric: denies: anxiety, bipolar disorder, depression, hopeless, panic disorder, schizophrenia, sleepless, suicidal, others All Other Systems: Reviewed and Negative Physical Exam General Appearance: No Apparent Distress, Normal HEENT: Normal ENT Inspection, PERRL/EOMI Neck: Full Range of Motion, Non-Tender, Normal, Normal Inspection Respiratory: Chest Non-Tender, Lungs Clear, No Accessory Muscle Use, No Respiratory Distress, Normal Breath Sounds Cardiovascular: No Edema, No JVD, No Murmur, No Gallop, Normal Peripheral Pulses, Regular Rate/Rhythm Breast Exam: Deferred Gastrointestinal: No Organomegaly, Non Tender, No Pulsatile Mass, Normal Bowel Sounds, Soft Genitalia: Deferred Pelvic: Deferred Rectal: Deferred Extremities: No calf tenderness, Normal capillary refill, Normal inspection, Normal range of motion, Non-tender, No pedal edema Musculoskeletal : Apperance: Normal Neurologic: Alert, nurse school II-XII nml as Tested, No Motor Deficits, Normal Affect, Normal Mood, No Sensory Deficits Cerebellar Function: Normal Reflexes: Normal Skin: Dry, Normal Color, Warm Lymphatic: No Adenopathy Was a procedure done? Was a procedure done?: No Differential Dx Considerations may include: Normal , threatened , early X-Ray, Labs, Meds, VS Vital Signs Date Time Temp Pulse Resp B/P (MAP) Pulse Ox O2 Delivery O2 Flow Rate FiO2 09/23/24 07:48 99.1 96 17 133/91 (105) 97 09/23/24 07:35 99.1 96 17 133/91 (105) 97 99.1 Lab Test 09/23/24 08:39 Range/Units Beta HCG, Quantitative 31.9 H 1.5-4.2 mIU/mL Time of 1ST Reevaluation: 10:35 Reevaluation 1ST: Unchanged Patient Education/Counseling: Diagnosis, Treatment Family Education/Counseling: No Family Present Additional Information I reviewed the following notes from patient's past medical encounters: 05/12/24 for intractable back pain The following tests were ordered, and results were reviewed by me: Beta HCG I reviewed and agreed with the following test results read by other providers: None Additional Information was gathered from interviewing the following independent historians: None I discussed treatment and results with medical personnel. Departure 1 Departure Time of Disposition: 09:49 (Patient was sent in for beta hCG test by her OB.) Impression: Primary Impression: Normal Qualified Codes: Z34.91 - Encounter for supervision of normal , unspecified, first trimester Disposition: 01 HOME / SELF CARE / HOMELESS Condition: Stable Additional Instructions: Your Beta HCG is 31.9 Discharged With: Self Critical Care Note Critical Care Time?: No Stability Stability form required: No Heart Score Heart Score: Heart Score Response (Comments) Value History N/A 0 EKG N/A 0 Age N/A 0 Risk Factors N/A 0 Troponin N/A 0 Total 0 I personally scribed for LUCIUS SERNA MD ([email or web address]) on 09/23/24 at 09:40. Electronically submitted by Rasheed Herbert ([email or web address]). LUCIUS SERNA MD Sep 23, 2024 09:40
== END 2024-09-23 10:00 | disposition home or self-care (01) ==
LOC: ER 07:35
DX: Z32.01 Encounter for pregnancy test, result positive (principal); R10.2 Pelvic and perineal pain; Z36.9 Encounter for antenatal screening, unspecified; I10 Essential (primary) hypertension; Z79.52 Long term (current) use of systemic steroids; Z79.899 Other long term (current) drug therapy; Z90.49 Acquired absence of other specified parts of digestive tract; Z88.8 Allergy status to other drugs, medicaments and biological substances
CPT/HCPCS: 36415; 84702

== ENCOUNTER 2024-10-30 12:19 | Emergency (ER) | payer MEDICAID ==
[~2024-10-30] VITALS: Ht 162.6 cm; Wt 100.0 kg
--- NOTE | 2024-10-30 13:15 | ED.PDOC ---
HPI (NEURO) HPI Comments 34y F who presents to the ED for chief complaint of headache. Pt states she is currently , , 20 weeks along and states earlier this AM, she started to have headache which she describes as a splitting migraine. Pt states she started to have R sided numbness and came to the ED for further evaluation. Pt otherwise in the ED, is alert and oriented x 4 and able to answer all questions. Pt otherwise Chief Complaint: Headache Time Seen by MD: 13:00 Primary Care Provider: PAIN MANAGEMENT Reviewed Notes: Medications, Allergies Information Source: Patient Mode of Arrival: Ambulatory Brought in by: self Severity: Moderate Dizziness/Weakness Severity: Does not affect activitie Headache Severity: Moderate Timing: Hours Duration: Since onset Prehospital treatment: None Headache Location: Generalized Weakness Location: (R) Sided Onset: At rest Circumstances: Spontaneous Symptoms: Weakness History of: None Modifying factors: Nothing Associated Signs and Symptoms: Headache Past Medical History PAST MEDICAL HISTORY: HTN, Thyroid 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, 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 Family History Family History: Reviewed,noncontributory to illness Family History (Other): Neuropathy Social History Smoker: Non-Smoker Alcohol: Occasionally Drugs: Denies Drug Use Lives In: Home Constitutional: denies: chills, diaphoresis, fatigue, fever, malaise, sweats, weakness, others EENTM: denies: blurred vision, double vision, ear bleeding, ear discharge, ear drainage, ear pain, ear ringing, eye pain, eye redness, hearing loss, mouth pain, mouth swelling, nasal discharge, nose bleeding, nose congestion, nose pain, photophobia, tearing, throat pain, throat swelling, voice changes, others Respiratory: denies: cough, hemoptysis, orthopnea, SOB at rest, shortness of breath, SOB with excertion, stridor, wheezing, others Cardiovascular: denies: chest pain, dizzy spells, diaphoresis, Dyspnea on exertion, edema, irregular heart beat, left arm pain, lightheadedness, pal pitations, PND, syncope, others Gastrointestinal: denies: abdomen distended, abdominal pain, blood streaked bowels, constipated, diarrhea, dysphagia, difficulty swallowing, hematemesis, melena, nausea, poor appetite, poor fluid intake, rectal bleeding, rectal pain, vomiting, others Genitourinary: denies: abnormal vagina bleeding, burning, dyspareunia, dysuria, flank pain, frequency, hematuria, incontinence, pain, , vagina discharge, urgency, others Neurological: reports: headache, right sided weakness; denies: dizziness, fainting, left sided numbness, left sided weakness, numbness, paresthesia, pre- existing deficit, right sided numbness, seizure, speech problems, tingling, tremors, weakness, others Musculoskeletal: denies: back pain, gout, joint pain, joint swelling, muscle pain, muscle stiffness, neck pain, others Integumetry: denies: bruises, change in color, change in hair/nails, dryness, laceration, lesions, lumps, rash, wounds, others Allergic/Immunocompromised: denies: Difficulty Healing, Frequent Infections, Hives, Itching, others Hematologic/Lymphatic: denies: anemia, blood clots, easy bleeding, easy bruising, swollen glands, others Endocrine: denies: excessive hunger, excessive sweating, excessive thirst, excessive urination, flushing, intolerance to cold, intolerance to heat, une xplained weight gain, unexplained weight loss, others Psychiatric: denies: anxiety, bipolar disorder, depression, hopeless, panic disorder, schizophrenia, sleepless, suicidal, others All Other Systems: Reviewed and Negative Physical Exam General Appearance: No Apparent Distress HEENT: Normal ENT Inspection, Pharynx Normal, TMs Normal Neck: Full Range of Motion, Non-Tender, Normal, Normal Inspection Respiratory: Chest Non-Tender, Lungs Clear, No Accessory Muscle Use, No Respiratory Distress, Normal Breath Sounds Cardiovascular: No Edema, No JVD, No Murmur, No Gallop, Normal Peripheral Pulses, Regular Rate/Rhythm Breast Exam: Deferred Gastrointestinal: No Organomegaly, Non Tender, No Pulsatile Mass, Normal Bowel Sounds, Soft Genitalia: Deferred Pelvic: Deferred Rectal: Deferred Extremities: No calf tenderness, Normal capillary refill, Normal inspection, Normal range of motion, Non-tender, No pedal edema Musculoskeletal : Apperance: Normal Neurologic: Alert, electrotyper helper II-XII nml as Tested, No Motor Deficits, Normal Affect, Normal Mood, No Sensory Deficits Cerebellar Function: Normal Reflexes: Normal Skin: Dry, Normal Color, Warm Lymphatic: No Adenopathy Was a procedure done? Was a procedure done?: No Differential Diagnosis (SZ) Seizure: N/A General Weakness: Anemia, Dehydration, Electrolyte imbalance, Hypoglycemia, Hypotension, Hypovolemia, Other (uti) Headache: Migraine X-Ray, Labs, Meds, VS Vital Signs Date Time Temp Pulse Resp B/P (MAP) Pulse Ox O2 Delivery O2 Flow Rate FiO2 10/30/24 16:11 98.6 105 18 126/95 (105) 99 98.6 10/30/24 14:00 101 18 97 Room Air* 0 21 10/30/24 14:00 101 18 97 Room Air 0 10/30/24 12:40 98.1 90 18 135/84 (101) 98 98.1 Lab Test 10/30/24 13:48 10/30/24 13:05 10/30/24 12:42 Range/Units Sodium Level 137 136-145 mmol/L Potassium Level 4.3 3.5-5.1 mmol/L Chloride Level 105 98-107 mmol/L Carbon Dioxide Level 23 20-31 mmol/L Anion Gap 9 5-15 Blood Urea Nitrogen 9 9-23 mg/dL Creatinine 0.58 0.550-1.02 mg/dL Glomerular Filtration Rate Calc 120 >90 mL/min BUN/Creatinine Ratio 15.5 10.0-20.0 Serum Glucose 86 74-106 mg/dL Calcium Level 10.0 8.7-10.4 mg/dL Total Bilirubin 0.2 0.2-1.0 mg/dL Aspartate Amino Transferase (AST) 13 13-40 U/L Alanine Aminotransferase (ALT) 17 7-40 U/L Alkaline Phosphatase 50 46-116 U/L Total Protein 7.6 5.7-8.2 g/dL Albumin 4.8 3.2-4.8 g/dL White Blood Count 11.0 H 4.4-10.8 10^3/uL Red Blood Count 4.51 4.0-5.20 10^6/uL Hemoglobin 11.3 L 12.2-16.2 g/dL Hematocrit 35.7 L 36.0-46.0 % Mean Corpuscular Volume 79.2 L 80.0-100.0 fL Mean Corpuscular Hemoglobin 25.0 L 28.0-32.0 pg Mean Corpuscular Hemoglobin Concent 31.6 L 32.0-36.0 g/dL Red Cell Distribution Width 16.5 H 11.8-14.3 % Platelet Count 337 140-450 10^3/uL Mean Platelet Volume 8.4 6.9-10.8 fL Neutrophils (%) (Auto) 80.4 H 37.0-80.0 % Lymphocytes (%) (Auto) 11.4 10.0-50.0 % Monocytes (%) (Auto) 6.4 0.0-12.0 % Eosinophils (%) (Auto) 1.3 0.0-7.0 % Basophils (%) (Auto) 0.5 0.0-2.0 % Neutrophils # (Auto) 8.8 H 1.6-8.6 10 ^3/uL Lymphocytes # (Auto) 1.3 0.4-5.4 10 ^3/uL Monocytes # (Auto) 0.7 0-1.3 10 ^3/uL Eosinophils # (Auto) 0.1 0-0.8 10 ^3/uL Basophils # (Auto) 0.1 0-0.2 10 ^3/uL Nucleated Red Blood Cells 0.0 % Prothrombin Time 10.1 9.3-11.8 sec Prothrombin Time INR 0.95 0.9-1.15 Activated Partial Thromboplast Time 26.2 24.5-34.5 SEC Urine Color Yellow Yellow Urine Clarity Turbid H Clear Urine pH 5.5 5.0-9.0 Urine Specific [place] 1.029 1.001-1.035 Urine Protein Trace H Negative Urine Ketones Negative Negative Urine Blood 1+ H Negative /uL Urine Nitrite Negative Negative Urine Bilirubin Negative Negative Urine Urobilinogen Normal Negative mg/dL Urine Leukocyte Esterase Negative Negative /uL Urine RBC 12 0 - 4 /hpf Urine Microscopic WBC 8 H 0-5 /HPF Urine Squamous Epithelial Cells Mod <5 /hpf Urine Bacteria Few H None Seen /hpf Urine Mucus Few None Seen Urine Glucose Normal Normal mg/dL Urine Test Positive Negative Current Medications Medications (Trade) Dose Ordered Sig/Galo Route Start Time Stop Time Status Last Admin Acetaminophen (Tylenol Tablet) 650 mg ONCE ONCE PO 10/30/24 13:00 10/30/24 13:01 DC 10/30/24 14:15 OB ULTRASOUND <14 WEEKS: IMPRESSION: Dichorionic diamniotic twin gestation. IUP twin A live fetus 8 weeks and 6 days AUA corresponding to an KWAN of 06/05/2025. IUP twin B live fetus 9 weeks and 0 days AUA corresponding to an KWAN of 06/04/2025. Moderate subchorionic hematoma is present measuring 4.4 x 1.2 cm. Close clinical and sonographic follow-up advised. At this time, the patient's urine test is negative for infection. The patient's CBC shows mild anemia with a hemoglobin of 11.3 and hematocrit of 35.7 The chemistry panel is within normal limits The patient sustains some elevated blood pressure The patient was told to follow up with her OBGYN The patient will return to the emergency department's the condition worsens. Images Reviewed?: Images reviewed and evaluated by me Time of 1ST Reevaluation: 13:30 Reevaluation 1ST: Unchanged Patient Education/Counseling: Diagnosis, Treatment, Prognosis, Need For Follow Up Family Education/Counseling: No Family Present Additional Information -Reviewed patient's previous visit(s): - The following tests were ordered, and results were reviewed by me: ua, cbc, cmp, ptptt - Additional information was gathered from interviewing the following independent Historian: patient - I reviewed and agreed with the following test results read by other provider: none - I discussed treatments and results with medical personnel and: patient Comprehensive systems review obtained and negative except for what is stated in the HPI. Departure 1 Departure Time of Disposition: 16:45 Impression: Primary Impression: Hypertension Qualified Codes: I10 - Essential (primary) hypertension Additional Impression: Twin gestation in first trimester Qualified Codes: O30.001 - Twin , unspecified number of placenta and unspecified number of amniotic sacs, first trimester Disposition: 01 HOME / SELF CARE / HOMELESS Condition: Fair Discharged With: Self Critical Care Note Critical Care Time?: No Stability Stability form required: No Heart Score Heart Score: Heart Score Response (Comments) Value History N/A 0 EKG N/A 0 Age N/A 0 Risk Factors N/A 0 Troponin N/A 0 Total 0 I personally scribed for RASHAD ELIZALDE MD ([email or web address]) on 10/30/24 at 13:14. Electronically submitted by Jordan Hunter ([facility]). I personally scribed for RASHAD ELIZALDE MD ([email or web address]) on 10/30/24 at 16:41. Electronically submitted by Jordan Hunter ([facility]). RASHAD ELIZALDE MD Oct 30, 2024 13:14
[2024-10-30 13:24] LABS: Basophils # (auto) 0.1 10 ^3/uL (0-0.2); Basophils % (auto) 0.5 % (0.0-2.0); Eosinophils # (auto) 0.1 10 ^3/uL (0-0.8); Eosinophils % (auto) 1.3 % (0.0-7.0); Hematocrit 35.7 % (36.0-46.0); Hemoglobin 11.3 g/dL (12.2-16.2); Lymphocytes # (auto) 1.3 10 ^3/uL (0.4-5.4); Lymphocytes % (auto) 11.4 % (10.0-50.0); Mean Corpuscular Hgb Conc. 31.6 g/dL (32.0-36.0); Mean Corpuscular Volume 79.2 fL (80.0-100.0); Monocytes # (auto) 0.7 10 ^3/uL (0-1.3); Monocytes % (auto) 6.4 % (0.0-12.0); Neutrophils # (auto) 8.8 10 ^3/uL (1.6-8.6); Neutrophils % (auto) 80.4 % (37.0-80.0); Platelet Count (auto) 337 10^3/uL (140-450); Red Blood Cells 4.51 10^6/uL (4.0-5.20); Red Cell Distribution Width 16.5 % (11.8-14.3)
[2024-10-30 13:33] LABS: INR 0.95 (0.9-1.15); Partial Thromboplastin Time 26.2 SEC (24.5-34.5); Prothrombin Time 10.1 sec (9.3-11.8)
[2024-10-30 14:00] VITALS: PULSE 101; RESP 18; O2SAT 97
[2024-10-30] MEDS: ACETAMINOPHEN 325 MG TAB PO ONE (14:15)
[2024-10-30 14:22] LABS: Alanine Aminotransferase 17 U/L (7-40); Albumin 4.8 g/dL (3.2-4.8); Alkaline Phosphatase 50 U/L (46-116); Anion Gap 9 (5-15); Aspartate Aminotransferase 13 U/L (13-40); BUN/Creatinine Ratio 15.5 (10.0-20.0); Carbon Dioxide 23 mmol/L (20-31); Chloride 105 mmol/L (98-107); Glucose 86 mg/dL (74-106); Potassium 4.3 mmol/L (3.5-5.1); Sodium 137 mmol/L (136-145); Total Protein 7.6 g/dL (5.7-8.2)
[2024-10-30 14:23] LABS: Bilirubin, Total 0.2 mg/dL (0.2-1.0); Blood Urea Nitrogen 9 mg/dL (9-23)
[2024-10-30 14:39] LABS: Urine Bacteria FEW /hpf (None Seen); Urine Blood 1+ /uL (Negative); Urine Clarity Turbid (Clear); Urine Color Yellow (Yellow); Urine Mucus FEW (None Seen); Urine Protein, UAD TRACE (Negative); Urine Specific Gravity 1.029 (1.001-1.035); Urine Squamous Epithelial Cell MOD /hpf (<5); Urine Urobilinogen Normal (Negative); Urine WBC 8 /HPF (0-5); Urine pH 5.5 (5.0-9.0)
--- NOTE | 2024-10-30 16:25 | DVH ---
OB ULTRASOUND <14 WEEKS: HISTORY: pain TECHNIQUE: Multiple real-time grayscale sonographic images of the pelvis with duplex Doppler color f low, spectral and M-mode analysis. TRANSDUCERS: Transabdominal COMPARISON: None FINDINGS: TWIN A : The uterus measures 14.1 x 12.4 x 6.2 cm The cervix is not visualized Ovaries are not visualized. IUP twin fetus at 8 weeks and 6 days average ultrasound age based on mean crown-rump length of 2.3 c m and gestational sac size of 3.5 cm heart rate detected at 178 beats per minute. Yolk sac is present. Amniotic fluid is subjectively within normal limits Anjali-gestational space: Unremarkable TWIN B: IUP twin fetus at 9 weeks and 0 days average ultrasound age based on mean crown-rump length of 2.3 c m and gestational sac size of 3.6 cm heart rate detected at 175 beats per minute. Yolk sac is present. Amniotic fluid is subjectively within normal limits Anjali-gestational space: Moderate subchorionic hematoma is present measuring 4.4 x 1.2 cm. IMPRESSION: Dichorionic diamniotic twin gestation. IUP twin A live fetus 8 weeks and 6 days AUA corresponding to an KWAN of 06/05/2025. IUP twin B live fetus 9 weeks and 0 days AUA corresponding to an KWAN of 06/04/2025. Moderate subchorionic hematoma is present measuring 4.4 x 1.2 cm. Close clinical and sonographic foll ow-up advised.
[2024-10-30 17:19] VITALS: BP 128/84; PULSE 76; RESP 18; TEMP 98.6; O2SAT 98
== END 2024-10-30 17:20 | disposition home or self-care (01) ==
LOC: ER 12:19
DX: O16.1 Unspecified maternal hypertension, first trimester (principal); O20.0 Threatened abortion; O30.041 Twin pregnancy, dichorionic/diamniotic, first trimester; Z3A.09 9 weeks gestation of pregnancy; Z98.890 Other specified postprocedural states
CPT/HCPCS: 36415; 76801; 80053; 81001; 81025; 85025; 85610; 85730

== ENCOUNTER 2024-11-15 07:47 | Emergency (ER) | payer MEDICAID ==
[~2024-11-15] VITALS: Ht 162.6 cm; Wt 102.0 kg
[2024-11-15 08:12] VITALS: PULSE 90; RESP 16; O2SAT 98
--- NOTE | 2024-11-15 08:27 | ED.PDOC ---
HPI (NEURO) HPI Comments 34 year old female presents to the ED with chief complaint of right sided weakness and headache during . Patient reports that she is currently 12.5 weeks with twins via IVF. Patient relays that since her last was high risk due to preeclampsia, she was prescribed blood pressure medication to help manage it throughout this . Patient states she has been taking it intermittently when her BP is elevated, normally in the 170-180s, however, she has been experiencing persistent headaches for the past few days with associated dizziness and SOB. Patient notes that she started to experience right sided numbness, tingling and weakness since 3:30pm yesterday and later on had a syncopal episode in her bed. Patient denies any N/V, chest pain, or LOC at this time. Chief Complaint: Right Sided Weakness Time Seen by MD: 08:17 Primary Care Provider: JONI Valladares Notes: Nurses Notes, Medications, Allergies Information Source: Patient Mode of Arrival: Ambulatory Severity: Moderate Dizziness/Weakness Severity: Unable to do activities Headache Severity: Moderate Timing: Days Duration: Since onset Prehospital treatment: None Headache Quality: Aching Headache Location: Generalized Weakness Location: (R) Sided Numbness Location: (R) Sided Onset: At rest Circumstances: Spontaneous Symptoms: Weakness, Numbness After: Headache History of: Hypertension Modifying factors: Nothing Associated Signs and Symptoms: Headache, Weakness, Numbness Past Medical History PAST MEDICAL HISTORY: HTN, Thyroid 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, 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 Family History Family History: Reviewed,noncontributory to illness Family History (Other): Neuropathy Social History Smoker: Non-Smoker Alcohol: Occasionally Drugs: Denies Drug Use Lives In: Home Constitutional: denies: chills, diaphoresis, fatigue, fever, malaise, sweats, weakness, others EENTM: denies: blurred vision, double vision, ear bleeding, ear discharge, ear drainage, ear pain, ear ringing, eye pain, eye redness, hearing loss, mouth pain, mouth swelling, nasal discharge, nose bleeding, nose congestion, nose pain, photophobia, tearing, throat pain, throat swelling, voice changes, others Respiratory: reports: shortness of breath; denies: cough, hemoptysis, orthopnea, SOB at rest, SOB with excertion, stridor, wheezing, others Cardiovascular: denies: chest pain, dizzy spells, diaphoresis, Dyspnea on exertion, edema, irregular heart beat, left arm pain, lightheadedness, palpitations, PND, syncope, others Gastrointestinal: denies: abdomen distended, abdominal pain, blood streaked bowels, constipated, diarrhea, dysphagia, difficulty swallowing, hematemesis, melena, nausea, poor appetite, poor fluid intake, rectal bleeding, rectal pain, vomiting, others Genitourinary: denies: abnormal vagina bleeding, burning, dyspareunia, dysuria, flank pain, frequency, hematuria, incontinence, pain, , vagina discharge, urgency, others Neurological: reports: dizziness, headache, right sided numbness, right sided weakness; denies: fainting, left sided numbness, left sided weakness, numbness, paresthesia, pre-existing deficit, seizure, speech problems, tingling, tremors, weakness, others Musculoskeletal: denies: back pain, gout, joint pain, joint swelling, muscle pain, muscle stiffness, neck pain, others Integumetry: denies: bruises, change in color, change in hair/nails, dryness, laceration, lesions, lumps, rash, wounds, others Allergic/Immunocompromised: denies: Difficulty Healing, Frequent Infections, Hives, Itching, others Hematologic/Lymphatic: denies: anemia, blood clots, easy bleeding, easy bruising, swollen glands, others Endocrine: denies: excessive hunger, excessive sweating, excessive thirst, excessive urination, flushing, intolerance to cold, intolerance to heat, unexplained weight gain, unexplained weight loss, others Psychiatric: denies: anxiety, bipolar disorder, depression, hopeless, panic disorder, schizophrenia, sleepless, suicidal, others All Other Systems: Reviewed and Negative Physical Exam General Appearance: No Apparent Distress, Normal HEENT: Normal ENT Inspection, PERRL/EOMI Neck: Full Range of Motion, Non-Tender, Normal, Normal Inspection Respiratory: Chest Non-Tender, Lungs Clear, No Accessory Muscle Use, Normal Breath Sounds, Other (Short of breath) Cardiovascular: No Edema, No JVD, No Murmur, No Gallop, Normal Peripheral Pulses, Regular Rate/Rhythm Breast Exam: Deferred Gastrointestinal: No Organomegaly, Non Tender, No Pulsatile Mass, Normal Bowel Sounds, Soft Genitalia: Deferred Pelvic: Deferred Rectal: Deferred Extremities: No calf tenderness, Normal capillary refill, Normal inspection, Normal range of motion, Non-tender, No pedal edema Musculoskeletal : Apperance: Normal Neurologic: Alert, survey research analyst II-XII nml as Tested, Normal Affect, Normal Mood, No Sensory Deficits, Other (3/5 right sided strength) Cerebellar Function: Normal Reflexes: Normal Skin: Dry, Normal Color, Warm Lymphatic: No Adenopathy Was a procedure done? Was a procedure done?: No Differential Diagnosis (SZ) Seizure: CVA/TIA, Hypocalcemia, Hypoglycemia, Idiopathic, Syncope CVA: Electrolyte Imbalance, TIA General Weakness: CVA, TIA Headache: Migraine X-Ray, Labs, Meds, VS Vital Signs Date Time Temp Pulse Resp B/P (MAP) Pulse Ox O2 Delivery O2 Flow Rate FiO2 11/15/24 08:17 98.5 101 16 154/101 (118) 98 98.5 11/15/24 08:12 90 16 98 Room Air* 0 21 11/15/24 08:02 99 11/15/24 08:00 98.5 98 18 120/82 (95) 98 98.5 Lab Test 11/15/24 09:32 11/15/24 08:26 Range/Units Troponin I High Sensitivity < 3 L < 3 L </=34 ng/L White Blood Count 10.1 4.4-10.8 10^3/uL Red Blood Count 4.30 4.0-5.20 10^6/uL Hemoglobin 11.0 L 12.2-16.2 g/dL Hematocrit 33.2 L 36.0-46.0 % Mean Corpuscular Volume 77.2 L 80.0-100.0 fL Mean Corpuscular Hemoglobin 25.5 L 28.0-32.0 pg Mean Corpuscular Hemoglobin Concent 33.1 32.0-36.0 g/dL Red Cell Distribution Width 17.5 H 11.8-14.3 % Platelet Count 268 140-450 10^3/uL Mean Platelet Volume 8.8 6.9-10.8 fL Neutrophils (%) (Auto) 80.0 37.0-80.0 % Lymphocytes (%) (Auto) 12.4 10.0-50.0 % Monocytes (%) (Auto) 5.4 0.0-12.0 % Eosinophils (%) (Auto) 1.9 0.0-7.0 % Basophils (%) (Auto) 0.3 0.0-2.0 % Neutrophils # (Auto) 8.1 1.6-8.6 10 ^3/uL Lymphocytes # (Auto) 1.3 0.4-5.4 10 ^3/uL Monocytes # (Auto) 0.5 0-1.3 10 ^3/uL Eosinophils # (Auto) 0.2 0-0.8 10 ^3/uL Basophils # (Auto) 0 0-0.2 10 ^3/uL Nucleated Red Blood Cells 0.0 % Prothrombin Time 10.2 9.3-11.8 sec Prothrombin Time INR 0.96 0.9-1.15 Activated Partial Thromboplast Time 26.5 24.5-34.5 SEC Sodium Level 136 136-145 mmol/L Potassium Level 3.4 L 3.5-5.1 mmol/L Chloride Level 106 98-107 mmol/L Carbon Dioxide Level 19 L 20-31 mmol/L Anion Gap 11 5-15 Blood Urea Nitrogen 5 L 9-23 mg/dL Creatinine 0.56 0.550-1.02 mg/dL Glomerular Filtration Rate Calc 121 >90 mL/min BUN/Creatinine Ratio 8.9 L 10.0-20.0 Serum Glucose 119 H 74-106 mg/dL Calcium Level 9.0 8.7-10.4 mg/dL Total Bilirubin 0.3 0.2-1.0 mg/dL Aspartate Amino Transferase (AST) 11 L 13-40 U/L Alanine Aminotransferase (ALT) 11 7-40 U/L Alkaline Phosphatase 44 L 46-116 U/L B-Type Natriuretic Peptide 18.92 0-100 pg/mL Total Protein 7.0 5.7-8.2 g/dL Albumin 4.2 3.2-4.8 g/dL Current Medications Medications (Trade) Dose Ordered Sig/Galo Route Start Time Stop Time Status Last Admin Acetaminophen (Tylenol Tablet) 650 mg ONCE ONCE PO 11/15/24 09:15 11/15/24 09:16 DC 11/15/24 09:10 Ondansetron HCl (Zofran) 4 mg ONCE ONCE IV 11/15/24 09:15 11/15/24 09:16 DC 11/15/24 09:10 CT Head: FINDINGS: There is no evidence of acute intracranial hemorrhage, extra-axial collection, mass effect, midline shift, herniation or hydrocephalus. The ventricles, sulci and cisterns are age appropriate. The gomez-white differentiation is intact. The visualized paranasal sinuses and mastoid air cells are clear. No depressed calvarial fracture. The surrounding soft tissues are unremarkable. IMPRESSION: 1. No evidence of acute intracranial abnormality. Images Reviewed?: Images reviewed and evaluated by me Time of 1ST Reevaluation: 09:17 Reevaluation 1ST: Unchanged Patient Education/Counseling: Diagnosis, Treatment Family Education/Counseling: No Family Present Additional Information Previous medical encounters reviewed: None The following tests were ordered, and results were reviewed by me: BNP, CMP, CBC, PTPTT, Troponin, Preg Urine, UA, Head CT Additional Information was gathered from interviewing the following independent historians: None I reviewed and agreed with the following test results read by other providers: Head CT I discussed treatment and results with medical personnel and: Patient Comprehensive systems review obtained and negative except for what is stated in the HPI. Departure 1 Departure Time of Disposition: 10:28 (Patient with right-sided weakness and multiple episodes of syncope and near-syncope. Patient is out of the window for any acute interventions. Patient is currently with twins. Initial CT is negative. We will admit patient for further workup including MRI and neuro consultation OB consultation.) Impression: Primary Impression: Acute right-sided weakness Additional Impressions: Near syncope Qualified Codes: Z3A.12 - 12 weeks gestation of Disposition: ADMITTED INPATIENT Admit to: Med Surg Condition: Guarded Critical Care Note Critical Care Time?: Yes Critical care comment: Right-sided weakness Authorized and Performed by: Lucius Geronimo MD Total critical care time: Approximately 39 minutes Due to a high probability of clinically significant, life threatening deterioration, the patient required my highest level of preparedness to intervene emergently and I personally spent this critical care time directly and personally managing the patient. This critical care time included obtaining a history; examining the patient; pulse oximetry; ordering and review of studies; arranging urgent treatment with development of a management plan; evaluation of patient's response to treatment; frequent reassessment; and, discussions with other providers. This critical care time was performed to assess and manage the high probability of imminent, life-threatening deterioration that could result in multi-organ failure. It was exclusive of separately billable procedures and treating other patients and teaching time. Please see my other sections and the rest of the note for further information on patient assessment and treatment. Stability Stability form required: No Heart Score Heart Score: Heart Score Response (Comments) Value History N/A 0 EKG N/A 0 Age N/A 0 Risk Factors N/A 0 Troponin N/A 0 Total 0 I personally scribed for LUCIUS GERONIMO MD ([email or web address]) on 11/15/24 at 08:27. Electronically submitted by Rasheed Herbert ([email or web address]). I personally scribed for LUCIUS GERONIMO MD ([email or web address]) on 11/15/24 at 09:38. Electronically submitted by Rasheed Herbert ([email or web address]). LUCIUS GERONIMO MD Nov 15, 2024 08:27
[2024-11-15 08:57] LABS: Alanine Aminotransferase 11 U/L (7-40); Albumin 4.2 g/dL (3.2-4.8); Alkaline Phosphatase 44 U/L (46-116); Anion Gap 11 (5-15); Aspartate Aminotransferase 11 U/L (13-40); BUN/Creatinine Ratio 8.9 (10.0-20.0); Bilirubin, Total 0.3 mg/dL (0.2-1.0); Blood Urea Nitrogen 5 mg/dL (9-23); Carbon Dioxide 19 mmol/L (20-31); Chloride 106 mmol/L (98-107); Glucose 119 mg/dL (74-106); Potassium 3.4 mmol/L (3.5-5.1); Sodium 136 mmol/L (136-145)
[2024-11-15 09:01] LABS: Basophils # (auto) 0 10 ^3/uL (0-0.2); Eosinophils # (auto) 0.2 10 ^3/uL (0-0.8); Eosinophils % (auto) 1.9 % (0.0-7.0); Lymphocytes # (auto) 1.3 10 ^3/uL (0.4-5.4); Monocytes % (auto) 5.4 % (0.0-12.0)
[2024-11-15 09:04] LABS: Basophils % (auto) 0.3 % (0.0-2.0); Hematocrit 33.2 % (36.0-46.0); Lymphocytes % (auto) 12.4 % (10.0-50.0); Mean Corpuscular Hemoglobin 25.5 pg (28.0-32.0); Mean Corpuscular Hgb Conc. 33.1 g/dL (32.0-36.0); Mean Corpuscular Volume 77.2 fL (80.0-100.0); Monocytes # (auto) 0.5 10 ^3/uL (0-1.3); Neutrophils # (auto) 8.1 10 ^3/uL (1.6-8.6); Platelet Count (auto) 268 10^3/uL (140-450); Red Cell Distribution Width 17.5 % (11.8-14.3); White Blood Cell 10.1 10^3/uL (4.4-10.8)
--- NOTE | 2024-11-15 09:05 | DVH ---
EXAM: CT HEAD WITHOUT CONTRAST INDICATION: right sided weakness since yesterday TECHNIQUE: CT of the head without intravenous contrast. Coronal and sagittal reformatted images are s ubmitted. Radiation Dose : 1. Head: CT Dose: CTDI volume is 55.62 mGy. Dose-length product is 891.27 mGy*cm The dose indicators for CT are the volume Computed Tomography (CT) Dose Index (CTDIvol) and the Dose Length Product (DLP), and are measured in units of mGy and mGy-cm, respectively. These indicators are not patient dose, but values generated from the CT scanner acquisition factors. The report includes radiation exposure data for exposures received during this examination. All CT scans at this medical facility are performed using dose modulation techniques as appropriate to a performed exam including the following: Automated exposure control was utilized; adjustment of the MA and/or KV according to patient size; and use of iterative reconstruction technique. COMPARISON: None FINDINGS: There is no evidence of acute intracranial hemorrhage, extra-axial collection, mass effect, midline s hift, herniation or hydrocephalus. The ventricles, sulci and cisterns are age appropriate. The gomez-white differentiation is intact. The visualized paranasal sinuses and mastoid air cells are clear. No depressed calvarial fracture. The surrounding soft tissues are unremarkable. IMPRESSION: 1. No evidence of acute intracranial abnormality.
[2024-11-15] MEDS: ACETAMINOPHEN 325 MG TAB PO ONE ×2 (09:10→17:31)
[2024-11-15] MEDS: ONDANSETRON HCL 4 MG/2 ML VIAL IV ONE ×2 (09:10→17:31)
[2024-11-15 09:37] LABS: INR 0.96 (0.9-1.15); Partial Thromboplastin Time 26.5 SEC (24.5-34.5); Prothrombin Time 10.2 sec (9.3-11.8)
--- NOTE | 2024-11-15 11:20 | DVH ---
OB ULTRASOUND <14 WEEKS: HISTORY: twins, 12 weeks, weakness, near syncope TECHNIQUE: Multiple real-time grayscale sonographic images of the pelvis with duplex Doppler color f low, spectral and M-mode analysis. TRANSDUCERS: Transabdominal COMPARISON: US OB ULTRASOUND COMP LESS 14WKS on DOS: 10/30/24 FINDINGS: The uterus measures 16.5 x 11.9 x 10.2 cm. Uterine fibroid is present measuring 6.8 cm. The cervix is not visualized Ovaries are not visualized. Anjali-gestational space: Subchorionic hematoma is present measuring 4.9 x 2.4 cm. TWIN A: IUP when fetus at 11 weeks and 1 day average ultrasound age based on mean crown-rump length of 4.8 c m and gestational sac size of 5.0 cm heart rate detected at 0 beats per minute. Yolk sac is not well visualized. Amniotic fluid is subjectively within normal limits TWIN B: IUP twin fetus at 11 weeks and 2 days average ultrasound age based on mean crown-rump length of 4.8 cm and gestational sac size of 4.9 cm heart rate detected at 175 beats per minute. Yolk sac is not visualized. Amniotic fluid is subjectively within normal limits IMPRESSION: Twin gestation, as above. No heart rate is visualized with Twin A. This may represent blighted . Close clinical and sonographic follow-up advised. Subchorionic hematoma is present measuring 4.9 x 4.8 cm. Close clinical and sonographic follow-up adv ised. Twin B at 11 weeks and 2 days average ultrasound age with KWAN of 06/04/2025.
[2024-11-15 13:08] LABS: Urine Bacteria FEW /hpf (None Seen); Urine Blood Negative /uL (Negative); Urine Clarity Clear (Clear); Urine Color Yellow (Yellow); Urine Mucus FEW (None Seen); Urine Protein, UAD TRACE (Negative); Urine Squamous Epithelial Cell FEW /hpf (<5); Urine Urobilinogen Normal (Negative); Urine WBC 1 /HPF (0-5)
--- NOTE | 2024-11-15 14:20 | DVH ---
LIMITED OB ULTRASOUND > 14 WKS: HISTORY: REPEAT FOR FHTS TECHNIQUE: Multiple real-time grayscale images of the gravid uterus with duplex Doppler color flow an d M-mode spectral analysis. FINDINGS: No heart tones seen in baby a. Baby b 169 beats per minute. IMPRESSION: No heart tones seen in baby a. Baby b 169 beats per minute.
[2024-11-15 15:53] VITALS: BP 113/74; PULSE 83; RESP 13; TEMP 97.6; O2SAT 100
--- NOTE | 2024-11-15 18:10 | ECG ---
[facility] Test Date: 2024-11-15 Test Time: 08:02:38 Pat Name: GLENIS SHIPLEY Department: ER Room: Gender: F Public Administration Professor: NANDINI : 1990 Requested By: EMERGENCY EMERGENCY Order Number: [id number] Reading MD: Alec Moran Measurements Intervals [place] Rate: 99 P: 52 HI: 119 QRS: 44 QRSD: 88 T: 14 QT: 341 QTc: 438 Interpretive Statements Sinus rhythm Abnormal R-wave progression, early transition Electronically Signed On 11-15-2024 18:51:53 PDT by Alec Moran Please click the below link to view image of tracing.
== END 2024-11-15 18:15 | disposition home or self-care (01) ==
LOC: ER 07:47
DX: O26.891 Other specified pregnancy related conditions, first trimester (principal); O10.911 Unspecified pre-existing hypertension complicating pregnancy, first trimester; G81.91 Hemiplegia, unspecified affecting right dominant side; R55 Syncope and collapse; Z3A.12 12 weeks gestation of pregnancy; Z90.49 Acquired absence of other specified parts of digestive tract; Z79.899 Other long term (current) drug therapy
CPT/HCPCS: 36415; 70450; 76801; 76815; 80053; 81001; 82947; 83880; 84484; 85025; 85610; 85730; 93005; 96374; 96376; 99285; J2405

== ENCOUNTER 2025-01-06 15:14 | Observation (INO) | payer MEDICAID ==
--- NOTE | 2025-01-06 16:20 | DVH ---
OB ULTRASOUND <14 WEEKS: HISTORY: Abdominal pain TECHNIQUE: Multiple real-time grayscale sonographic images of the pelvis with duplex Doppler color f low, spectral and M-mode analysis. TRANSDUCERS: FINDINGS: The cervix 3.01 Twin IUP with a demised fetus at 10 weeks 1 day average ultrasound age based on mean crown-rump lengt h of 3.26 cm. Demised twin measuring 10 weeks 1 day heart rate detected at 157 beats per minute. No evidence of placenta previa or abruption IMPRESSION: 1. with a demised twin measuring 10 weeks 1 day. The 2nd twin measurements not included in the study.
--- NOTE | 2025-01-08 12:56 | DVHDS2 ---
Physician Discharge Progress N Final Diagnosis: abd pain Operations or Procedures: Operations or Procedures nst reactive reviwedjeffreyo Condition on Discharge: Good Disposition: Home Discharge Instructions: Diet: Regular Activity: Light activity Medications: na Follow Up Care: Specialist: 1w Discharge Statement: "Patient was advised to return to the ER or call 911 if any headaches, dizziness, shortness of breath, chest pain, abdominal pain, bleeding, fevers, or worsening of medical condition. Patient was counseled about treatment plan, medications, possible side effects, patientverbalized understanding. All questions were answered to the best of my ability. This discharge took greater then 30 minutes in planning, reviewing documentation, counseling the patient, and discussing with other team members." Visit Coding OBGYN Date of Service: January 06, 2025 Billing Provider: HAMILTON DYE DO ACCELERATOR OPERATOR Common Visit Codes: 14799-[id number] OBS CARE (HIGH) ACCELERATOR OPERATOR Procedure Codes: 08339-30- NON-STRESS TEST HAMILTON DYE DO January 08, 2025 12:56
== END 2025-01-06 16:34 | disposition home or self-care (01) ==
LOC: LDRP 15:14
PROVIDERS: ADMIT Obstetrics & Gynecology; ATTEND Obstetrics & Gynecology
DX: O26.892 Other specified pregnancy related conditions, second trimester (principal); R10.30 Lower abdominal pain, unspecified; Z3A.20 20 weeks gestation of pregnancy; Z79.899 Other long term (current) drug therapy; Z98.890 Other specified postprocedural states
CPT/HCPCS: 76815; 81002; 94760; G0378; 59025

== ENCOUNTER 2025-02-15 16:18 | Observation (INO) | payer MEDICAID ==
--- NOTE | 2025-02-16 08:18 | DVHDS2 ---
Physician Discharge Progress N Final Diagnosis: SOB 25WKS Operations or Procedures: Operations or Procedures NST Condition on Discharge: Good Disposition: Home Discharge Instructions: Diet: Regular Activity: Light activity Medications: NA Follow Up Care: Specialist: 1WK Discharge Statement: "Patient was advised to return to the ER or call 911 if any headaches, dizziness, shortness of breath, chest pain, abdominal pain, bleeding, fevers, or worsening of medical condition. Patient was counseled about treatment plan, medications, possible side effects, patientverbalized understanding. All questions were answered to the best of my ability. This discharge took greater then 30 minutes in planning, reviewing documentation, counseling the patient, and discussing with other team members." Visit Coding OBGYN Date of Service: Feb 15, 2025 Billing Provider: HAMILTON DYE DO HOUSING OFFICER Common Visit Codes: [id number] OBS CARE (HIGH) HOUSING OFFICER Procedure Codes: 09478-98- NON-STRESS TEST HAMILTON DYE DO Feb 16, 2025 08:17
== END 2025-02-15 17:21 | disposition home or self-care (01) ==
LOC: LDRP 16:18
PROVIDERS: ADMIT Obstetrics & Gynecology; ATTEND Obstetrics & Gynecology
DX: O99.512 Diseases of the respiratory system complicating pregnancy, second trimester (principal); R06.02 Shortness of breath; O13.2 Gestational [pregnancy-induced] hypertension without significant proteinuria, second trimester; Z3A.25 25 weeks gestation of pregnancy; Z79.899 Other long term (current) drug therapy
CPT/HCPCS: 94760; G0378; 59025

== ENCOUNTER 2025-04-20 15:44 | Observation (INO) | payer MEDICAID ==
[2025-04-20] MEDS ORDERED: PREN-96 PO (15:53)
--- NOTE | 2025-04-20 17:18 | DVH ---
EXAM: US BIOPHYSICAL PROFILE HISTORY: Decrease Movement COMPARISON: None TECHNIQUE: Multiple transabdominal real-time grayscale sonographic images through the gravid uterus of the fetus with duplex Doppler color flow and M-mode spectral analysis Findings/Impression: Single live intrauterine in breech presentation with heart rate of 129 bpm. Biophysical profile was performed with 2 points for respirations, 2 points for movement, 2 points for tone and 2 points for amniotic fluid index. Biophysical profile score of 8/8. Amniotic fluid is within normal limits with EHSAN 19.5 cm and MVP 7.2 cm. Possible secondary placenta. Normal EHSAN (5-25 cm) Normal MVP (2-8 cm)
--- NOTE | 2025-04-21 17:23 | DVHDS2 ---
Discharge Summary Date of Admission Apr 20, 2025 at 15:44 Date of Discharge: Apr 20, 2025 Admitting Diagnosis 34-4/7 weeks intrauterine decreased movement Wounds: None Labs/Diagnostic Data: NST ultrasound performed both reassuring and reactive Brief Hx & Hospital Course: Patient admitted heart tones reassuring ultrasound performed [facility] [place] 03/23 Consults/Reason for consult Decreased movement Operations or Procedures NST ultrasound performed Condition at Discharge: Good Final Diagnosis/Problems List 34-4/7 reassuring heart tones Discharge Disposition: Home Discharge Instruct/Medications Diet: Regular Activity: Light activity Activity comment: Kick counts labor precautions Follow Up/Referral: As scheduled or p.r.n. Scheduled Amoxicillin & Pot Clavulanate (Augmentin), 1 TAB PO BID Cefdinir (Cefdinir), 1 CAP PO BID Cyclobenzaprine Hcl (Cyclobenzaprine Hcl), 10 MG PO TID Gabapentin (Gabapentin), 1 CAP PO TID Ondansetron (Zofran), 1 TAB PO Q8HR Prednisone (Prednisone), 20 MG PO BID Vit W/ Ferrous Fumara ( One Daily), 1 TAB PO DAILY, (Reported) Discharge Statement: "Patient was advised to return to the ER or call 911 if any headaches, dizziness, shortness of breath, chest pain, abdominal pain, bleeding, fevers, or worsening of medical condition. Patient was counseled about treatment plan, medications, possible side effects, patientverbalized understanding. All questions were answered to the best of my ability. This discharge took greater then 30 minutes in planning, reviewing documentation, counseling the patient, and discussing with other team members." ASSESSMENT ASSESSMENT Assessment Visit Coding OBGYN Date of Service: Apr 20, 2025 Billing Provider: FARHAD CASTILLO DO MOLD RELEASE WORKER Common Visit Codes: [id number] INP/OBS CARE(HIGH), 46744-HZH/OBS SAME DATE (LOW), 06016-UGF/OBS SAME DATE (MOD), 04145-VGG/OBS DISCH DAY <30MIN MOLD RELEASE WORKER Procedure Codes: 35193-29- NON-STRESS TEST FARHAD CASTILLO DO Apr 21, 2025 17:23
== END 2025-04-20 17:26 | disposition home or self-care (01) ==
LOC: LDRP 15:44
PROVIDERS: ADMIT Obstetrics & Gynecology; ATTEND Obstetrics & Gynecology
DX: O36.8130 Decreased fetal movements, third trimester, not applicable or unspecified (principal); Z3A.34 34 weeks gestation of pregnancy; Z98.890 Other specified postprocedural states
CPT/HCPCS: 59025; 76819; 81002; G0378